=== PATIENT | male | born 1960 | race Caucasian/White ===

== ENCOUNTER 2017-03-11 11:16 | Emergency (ER) | payer OTHER ==
[~2017-03-11] VITALS: Ht 167.6 cm; Wt 73.1 kg
[2017-03-11 11:19] VITALS: BP 166/87
== END 2017-03-11 12:52 | disposition home or self-care (01) ==
LOC: ED 12:30
DX: B96.89 Other specified bacterial agents as the cause of diseases classified elsewhere (principal); R06.00 Dyspnea, unspecified; J20.8 Acute bronchitis due to other specified organisms; Z87.891 Personal history of nicotine dependence
CPT/HCPCS: 71010; 93005; 99284